=== PATIENT | male | born 1990 | race Caucasian/White ===

== ENCOUNTER 2018-12-07 10:02 | Emergency (ER) | payer OTHER ==
[~2018-12-07] VITALS: Ht 185.4 cm; Wt 104.3 kg
[~2018-12-07 10:02] MED LIST: PREDNISONE 20 M20 MG PO
[2018-12-07] MEDS ORDERED: MEDROLDOSEPACK PO ×2 (11:32→11:43)
[2018-12-07 12:07] VITALS: BP 133/83
== END 2018-12-07 12:07 | disposition home or self-care (01) ==
LOC: M.ERS 10:02
DX: R59.0 Localized enlarged lymph nodes (principal); J45.909 Unspecified asthma, uncomplicated; F17.210 Nicotine dependence, cigarettes, uncomplicated; Z88.0 Allergy status to penicillin

== ENCOUNTER 2019-04-22 10:04 | Emergency (ER) | payer OTHER ==
[~2019-04-22] VITALS: Ht 182.9 cm; Wt 102.1 kg
[~2019-04-22 10:04] MED LIST changes: +MEDROLDOSEPACK PO
[2019-04-22 10:35] LABS: ABSOLUTE BASOPHILS 0.1 thou/uL (0.0-0.2); ABSOLUTE EOSINOPHILS 0.2 thou/uL (0.0-0.7); ABSOLUTE LYMPHOCYTES 1.5 thou/uL (0.8-5.3); ABSOLUTE MONOCYTES 1.3 thou/uL (0.0-1.2); ABSOLUTE NEUTROPHILS 9.5 thou/uL (1.6-8.1); BASOPHILS 0.4 %; EOSINOPHILS 1.5 %; HEMATOCRIT 45.6 % (42.0-52.0); HEMOGLOBIN 15.4 gm/dL (14.0-18.0); LYMPHOCYTES 11.8 %; MCH 27.8 pg (26.0-34.0); MCHC 33.7 g/dL (28.0-37.0); MCV 82.5 fL (80.0-100.0); MONOCYTES 10.4 %; MPV 8.7 fl. (7.2-11.1); NUCLEATED RBCS 0 /100WBC; PLATELET COUNT* 201 thou/uL (150-400); POLYS 75.9 %; RBC 5.53 mil/uL (4.50-6.00); RDW-CV 13.8 % (10.5-14.5); WBC 12.5 thou/uL (4.0-11.0)
[2019-04-22 10:45] LABS: ANION GAP 9 mmol/L (7-16); BUN 8 mg/dL (7-18); CALCIUM 9.2 mg/dL (8.5-10.1); CHLORIDE 98 mmol/L (98-107); CO2 31 mmol/L (21-32); CREATININE 0.8 mg/dL (0.6-1.3); GLUCOSE 106 mg/dL (70-99); SODIUM 138 mmol/L (136-145)
[2019-04-22 11:02] LABS: ALBUMIN 3.6 g/dL (3.4-5.0); ALKALINE PHOSPHATASE 64 U/L (46-116); LIPASE 137 U/L (73-393); NT-PRO BRAIN NAT PEPTIDE 8 pg/mL (<300); SGOT 19 U/L (15-37); SGPT 35 U/L (30-65); TOTAL BILIRUBIN 1.1 mg/dL (<0.1-1.0); TOTAL PROTEIN 8.3 g/dL (6.4-8.2); TROPONIN-I LEVEL <0.06 ng/mL (<0.06)
[2019-04-22 11:19] LABS: URINE BILIRUBIN NEGATIVE (Negative); URINE BLOOD NEGATIVE (Negative); URINE CLARITY CLEAR; URINE COLOR YELLOW; URINE GLUCOSE-RANDOM NEGATIVE (Negative); URINE KETONES NEGATIVE (Negative); URINE LEUKOCYTES-REFLEX NEGATIVE (Negative); URINE NITRITE-REFLEX NEGATIVE (Negative); URINE PROTEIN NEGATIVE (Negative); URINE SPECIFIC GRAVITY >= 1.030 (1.005-1.030); URINE UROBILINOGEN 0.2 E.U./dl (0.2-1.0)
[2019-04-22 11:26] LABS: AMP/METHAMP POSITIVE (Negative); BARBITURATES Negative (Negative); BENZODIAZEPINES Negative (Negative); COCAINE Negative (Negative); METHADONE Negative (Negative); OPIATES POSITIVE (Negative); PCP Negative (Negative); THC Negative (Negative)
[2019-04-22] MEDS ORDERED: NAPROSYN500 MG PO (12:13)
[2019-04-22] MEDS ORDERED: DOXYCYCLINE 10100 MG PO (12:13)
[2019-04-22] MEDS ORDERED: VENTOLIN HFA 1818 GM INH (12:13)
[2019-04-22 12:25] VITALS: BP 107/68
--- NOTE | 2019-04-22 14:37 | EKG ---
[place] [address] ELECTROCARDIOGRAM REPORT Name: SANDI VIGILWAYNE [id number] Admission: 04/22/19 Attend Phys: Discharge: 04/22/19 Date of : [birth year] Report #: [id number] THIS REPORT FOR: //name// [facility] ED Test Date: 2019-04-22 Test Time: 10:15:04 Pat Name: SANDI VIGIL Department: Room: Gender: M [employer] Load And Unload: SNEHAL : 1990 Requested By: Janelle Schuler Order Number: [id number] MD: Kunal Andrade Measurements Intervals [place] Rate: 100 P: 1 HI: 152 QRS: 54 QRSD: 87 T: 39 QT: 330 QTc: 426 Interpretive Statements Sinus tachycardia Compared to ECG 04/06/2016 17:30:58 Sinus rhythm no longer present Electronically Signed On 04-22-2019 14:37:24 CDT by Kunal Andrade [email or web address] <ELECTRONICALLY SIGNED> By: Kunal Andrade MD, [facility] 04/22/19 [id number] Kunal Andrade MD, FACC /EPI
== END 2019-04-22 12:25 | disposition home or self-care (01) ==
LOC: M.ERS 10:04
PROVIDERS: Nurse Practitioner Family
DX: J18.8 Other pneumonia, unspecified organism (principal); F19.10 Other psychoactive substance abuse, uncomplicated; J45.909 Unspecified asthma, uncomplicated; F17.210 Nicotine dependence, cigarettes, uncomplicated; Z88.0 Allergy status to penicillin